=== PATIENT | male | born 1990 | race Caucasian/White ===

== ENCOUNTER 2018-12-14 11:41 | Emergency (ER) | payer SELFPAY ==
[2018-12-14 13:09] LABS: Absolute Lymphocytes (CBC) 2.2 K/uL (0.7-4.9); Absolute Monocytes 1.3 K/uL (0.1-1.3); Absolute Neutrophil 5.4 K/uL (1.8-8.0); Basophils % 0.6 % (0-1.3); Eosinophils % 1.2 % (0-4.4); Hematocrit 47.4 % (39.6-49.0); MPV 8.9 fL (7.6-11.3); RBC Red Blood Cell Count 4.91 M/uL (4.33-5.43)
[2018-12-14 13:12] LABS: BUN Blood Urea Nitrogen 11 mg/dL (7-18); Bicarbonate 28 mmol/L (21-32); Glucose Level 109 mg/dL (74-106); Potassium 3.8 mmol/L (3.5-5.1); Sodium Level 139 mmol/L (136-145)
--- NOTE | 2018-12-14 13:33 | RAD REPORT ---
EXAM DESCRIPTION: RAD - Foot Right 3 View - 12/14/2018 1:22 pm CLINICAL HISTORY: Right foot pain FINDINGS: No fracture or dislocation is seen No bony destructive lesions seen
--- NOTE | 2018-12-14 14:15 | EDPHYS ---
Physician Documentation [facility] Name: Royer Hinojosa Age: 28 yrs Sex: Male : 1990 Arrival Date: 12/14/2018 Time: 11:44 Bed 20 Private MD: None, None ED Physician Isac Carmona HPI: 12/14 12:59 This 28 yrs old Male presents to ER via Ambulatory with complaints of Right pm1 Foot Pain, Foot Infection. 12:59 The patient presents with pain. The complaints affect the sole of right foot. Context: pm1 The problem was sustained at an unknown site, resulted from an unknown cause, the patient can fully bear weight, the patient is able to ambulate. 12:59 Onset: The symptoms/episode began/occurred 3 day(s) ago. Modifying factors: The pm1 symptoms are alleviated by nothing. the symptoms are aggravated by weight bearing. Associated signs and symptoms: Pertinent negatives calf tenderness, fever, numbness, tingling, vomiting. Treatment prior to arrival includes: over the counter medications, topical antifungal. Severity of symptoms: in the emergency department the symptoms are actually worse. The patient has not experienced similar symptoms in the past. The patient has not recently seen a physician. Historical: - Allergies: 11:59 No Known Allergies; iw - Home Meds: 11:59 None [Active]; iw - PMHx: 11:59 None; iw - PSHx: 11:59 None; iw - Immunization history:: Last tetanus immunization: unknown. - Social history:: Smoking status: Patient uses tobacco products, smokes one pack cigarettes per day. - Ebola Screening: : Patient negative for fever greater than or equal to 101.5 degrees Fahrenheit, and additional compatible Ebola Virus Disease symptoms Patient denies exposure to infectious person Patient denies travel to an Ebola-affected area in the 21 days before illness onset No symptoms or risks identified at this time. ROS: 12:59 Constitutional: Negative for fever, chills, and weight loss, Eyes: Negative for injury, pm1 pain, redness, and discharge, ENT: Negative for injury, pain, and discharge, Neck: Negative for injury, pain, and swelling, Cardiovascular: Negative for chest pain, palpitations, and edema, Respiratory: Negative for shortness of breath, cough, wheezing, and pleuritic chest pain, Abdomen/GI: Negative for abdominal pain, nausea, vomiting, diarrhea, and constipation, Back: Negative for injury and pain, : Negative for injury, bleeding, discharge, and swelling, MS/Extremity: Negative for injury and deformity. 12:59 Neuro: Negative for headache, weakness, numbness, tingling, and seizure. 12:59 Skin: Positive for abscess, of the right foot. Exam: 12:59 Constitutional: This is a well developed, well nourished patient who is awake, alert, pm1 and in no acute distress. Head/Face: Normocephalic, atraumatic. Neck: Trachea midline, no thyromegaly or masses palpated, and no cervical lymphadenopathy. Supple, full range of motion without nuchal rigidity, or vertebral point tenderness. No Meningismus. Chest/axilla: Normal chest wall appearance and motion. Nontender with no deformity. No lesions are appreciated. Cardiovascular: Regular rate and rhythm with a normal S1 and S2. No gallops, murmurs, or rubs. Normal PMI, no JVD. No pulse deficits. Respiratory: Lungs have equal breath sounds bilaterally, clear to auscultation and percussion. No rales, rhonchi or wheezes noted. No increased work of breathing, no retractions or nasal flaring. Abdomen/GI: Soft, non-tender, with normal bowel sounds. No distension or tympany. No guarding or rebound. No evidence of tenderness throughout. Back: No spinal tenderness. No costovertebral tenderness. Full range of motion. 12:59 MS/ Extremity: Pulses equal, no cyanosis. Neurovascular intact. Full, normal range of motion. 12:59 Skin: Appearance: normal except for affected area, abscess, that is small, of the arch of right foot, with drainage, that is serosanguinous, with surrounding cellulitis, that is very mild, induration, is not appreciated. 12:59 Neuro: Orientation: is normal, Motor: is normal, Sensation: is normal, no obvious gross deficits. Vital Signs: 11:58 BP 141 / 92; Pulse 106; Resp 16; Temp 98.8; Pulse Ox 98% on R/A; Weight 70.31 kg; iw Height 6 ft. 0 in. (182.88 cm); Pain 10/10; 13:11 BP 126 / 89; Pulse 104; Resp 16 S; Pulse Ox 99% on R/A; ca1 13:54 BP 129 / 87; Pulse 80; Resp 16; Temp 98.6(TE); Pulse Ox 99% on R/A; mh5 14:50 BP 123 / 84; Pulse 75; Resp 16 S; Temp 98.4(O); Pulse Ox 100% on R/A; ca1 11:58 Body Mass Index 21.02 (70.31 kg, 182.88 cm) iw MDM: 12:35 Patient medically screened. pm1 14:12 Data reviewed: vital signs. Data interpreted: Pulse oximetry: on room air is 99 %. pm1 Interpretation: normal. Refusal of service: The patient/guardian displays adequate decision making capability and despite a detailed discussion of alternatives, benefits, risks, and consequences refuses: patient does not want me to perform incision and drainage of abscess to bottom of right foot. It is already draining and wound culture has been obtained. Patient would like to trial at home with antibiotics. Educated patient on return precautions. 14:12 Counseling: I had a detailed discussion with the patient and/or guardian regarding: the pm1 historical points, exam findings, and any diagnostic results supporting the discharge/admit diagnosis, lab results, radiology results, the need for outpatient follow up, a office lead, to return to the emergency department if symptoms worsen or persist or if there are any questions or concerns that arise at home. 12/14 12:39 Order name: CBC with Diff; Complete Time: 13:24 pm1 12/14 12:39 Order name: BMP; Complete Time: 13:19 pm1 12/14 12:39 Order name: Foot Right 3 View XRAY; Complete Time: 13:34 pm1 12/14 12:47 Order name: Wound Culture ca1 12/14 12:39 Order name: IV Saline Lock; Complete Time: 12:46 pm1 12/14 14:16 Order name: Wound dressing; Complete Time: 15:08 pm1 Administered Medications: 14:21 Drug: Bactrim (160 mg-800 mg (DS) 1 tablet Route: PO; ca1 15:07 Follow up: Response: No adverse reaction ca1 14:22 Drug: Peabody 5 mg-325 mg 1 tabs Route: PO; ca1 15:06 Follow up: Response: No adverse reaction; Pain is decreased ca1 14:25 Drug: Clindamycin 600 mg Route: IVPB; Infused Over: 30 mins; Site: right antecubital; ca1 15:07 Follow up: Response: No adverse reaction; IV Status: Completed infusion ca1 Disposition: 15:23 Co-signature as Attending Physician, Isac Carmona MD. Disposition: 12/14/18 14:14 Discharged to Home. Impression: Cutaneous abscess of right foot. - Condition is Stable. - Discharge Instructions: Skin Abscess. - Prescriptions for Clindamycin HCl 300 mg Oral Capsule - take 1 capsule by ORAL route every 6 hours for 10 days; 40 capsule. Bactrim DS 800- 160 mg Oral Tablet - take 1 tablet by ORAL route every 12 hours for 10 days; 20 tablet. Tylenol- Codeine #3 300-30 mg Oral Tablet - take 2 tablets by ORAL route every 6 hours As needed; 20 tablet. - Medication Reconciliation Form, Thank You Letter, Antibiotic Education, Prescription Opioid Use form. - Follow up: Emergency Department; When: As needed; Reason: Worsening of condition. Follow up: Private Physician; When: 2 - 3 days; Reason: Recheck today's complaints, Continuance of care, Re-evaluation by your physician. - Problem is new. - Symptoms have improved. Signatures: Dispatcher [employer] Cherelle Gaspar RN RN Tre Michele, [employer] pm1 Isac Carmona MD MD Brit Chavez RN RN ca1 Corrections: (The following items were deleted from the chart) 15:19 14:14 12/14/2018 14:14 Discharged to Home. Impression: Cutaneous abscess of right foot. ca1 Condition is Stable. Forms are Medication Reconciliation Form, Thank You Letter, Antibiotic Education, Prescription Opioid Use. Follow up: Emergency Department; When: As needed; Reason: Worsening of condition. Follow up: Private Physician; When: 2 - 3 days; Reason: Recheck today's complaints, Continuance of care, Re-evaluation by your physician. Problem is new. Symptoms have improved. pm1
--- NOTE | 2018-12-14 14:15 | ER ---
Nurse's Notes [facility] Name: Royer Hinojosa Age: 28 yrs Sex: Male : 1990 Arrival Date: 12/14/2018 Time: 11:44 Bed 20 Private MD: None, None Diagnosis: Cutaneous abscess of right foot Presentation: 12/14 11:56 Presenting complaint: Patient states: had a small spot on bottom of right iw foot, now the spot has grown larger and has redness and swelling surrounding the area. Transition of care: patient was not received from another setting of care. Onset of symptoms was December 11, 2018. Risk Assessment: Do you want to hurt yourself or someone else? Patient reports no desire to harm self or others. Initial Sepsis Screen: Does the patient meet any 2 criteria? HR > 90 bpm. Does the patient have a suspected source of infection? No. Patient's initial sepsis screen is negative. Care prior to arrival: None. 11:56 Method Of Arrival: Ambulatory 11:56 Acuity: FRANK 3 iw Historical: - Allergies: 11:59 No Known Allergies; iw - Home Meds: 11:59 None [Active]; iw - PMHx: 11:59 None; iw - PSHx: 11:59 None; iw - Immunization history:: Last tetanus immunization: unknown. - Social history:: Smoking status: Patient uses tobacco products, smokes one pack cigarettes per day. - Ebola Screening: : Patient negative for fever greater than or equal to 101.5 degrees Fahrenheit, and additional compatible Ebola Virus Disease symptoms Patient denies exposure to infectious person Patient denies travel to an Ebola-affected area in the 21 days before illness onset No symptoms or risks identified at this time. Screenin:08 Abuse screen: Denies threats or abuse. Denies injuries from another. Nutritional ca1 screening: No deficits noted. Tuberculosis screening: No symptoms or risk factors identified. Fall Risk None identified. Assessment: 12:08 General: Appears in no apparent distress. comfortable, Behavior is calm, cooperative, ca1 appropriate for age. Pain: Complains of pain in right foot Pain currently is 7 out of 10 on a pain scale. Pain began 2-3 days ago. Neuro: Level of Consciousness is awake, alert, obeys commands, Oriented to person, place, time, situation. Derm: Skin is healthy with good turgor, Skin is pink, warm \T\ dry. Abscess located on arch of right foot is dime sized, has purulent drainage, has no drainage, is red, is raised. Musculoskeletal: Circulation, motion, and sensation intact. Capillary refill < 3 seconds, Range of motion: intact in all extremities. 13:11 Reassessment: Patient appears in no apparent distress at this time. Patient and/or ca1 family updated on plan of care and expected duration. Pain level reassessed. Patient is alert, oriented x 3, equal unlabored respirations, skin warm/dry/pink. 13:54 Reassessment: Patient appears in no apparent distress at this time. Patient is alert, ca1 oriented x 3, equal unlabored respirations, skin warm/dry/pink. 14:50 Reassessment: Patient appears in no apparent distress at this time. Patient is alert, ca1 oriented x 3, equal unlabored respirations, skin warm/dry/pink. Vital Signs: 11:58 BP 141 / 92; Pulse 106; Resp 16; Temp 98.8; Pulse Ox 98% on R/A; Weight 70.31 kg; iw Height 6 ft. 0 in. (182.88 cm); Pain 10/10; 13:11 BP 126 / 89; Pulse 104; Resp 16 S; Pulse Ox 99% on R/A; ca1 13:54 BP 129 / 87; Pulse 80; Resp 16; Temp 98.6(TE); Pulse Ox 99% on R/A; mh5 14:50 BP 123 / 84; Pulse 75; Resp 16 S; Temp 98.4(O); Pulse Ox 100% on R/A; ca1 11:58 Body Mass Index 21.02 (70.31 kg, 182.88 cm) iw ED Course: 11:44 Patient arrived in ED. ag5 11:45 None, None is Private Physician. ag5 11:58 Triage completed. iw 11:58 Arm band placed on. iw 12:04 Brit Chavez, RN is Primary Nurse. ca1 12:08 Patient has correct armband on for positive identification. Bed in low position. Call ca1 light in reach. Side rails up X 1. Pulse ox on. NIBP on. Warm blanket given. 12:09 Tre Michele NP is PHCP. pm1 12:09 Isac Carmona MD is Attending Physician. pm1 12:47 Inserted saline lock: 20 gauge in right antecubital area, using aseptic technique. ca1 Blood collected. 13:22 Foot Right 3 View XRAY In Process Unspecified. EDMS 15:07 No provider procedures requiring assistance completed. IV discontinued, intact, ca1 bleeding controlled, No redness/swelling at site. Pressure dressing applied. Wound care: to abscess located on left foot and arch of right foot was cleaned with Hibiclens, irrigated with dressed with Neosporin, 4X4s, Kerlix, Patient tolerated well. Administered Medications: 14:21 Drug: Bactrim (160 mg-800 mg (DS) 1 tablet Route: PO; ca1 15:07 Follow up: Response: No adverse reaction ca1 14:22 Drug: Lena 5 mg-325 mg 1 tabs Route: PO; ca1 15:06 Follow up: Response: No adverse reaction; Pain is decreased ca1 14:25 Drug: Clindamycin 600 mg Route: IVPB; Infused Over: 30 mins; Site: right antecubital; ca1 15:07 Follow up: Response: No adverse reaction; IV Status: Completed infusion ca1 Outcome: 14:14 Discharge ordered by . pm1 15:18 Discharged to home ambulatory, with significant other. ca1 15:18 Condition: stable 15:18 Discharge instructions given to patient, Instructed on discharge instructions, follow up and referral plans. medication usage, wound care, Demonstrated understanding of instructions, follow-up care, medications, wound care, Prescriptions given X 3. 15:19 Patient left the ED. ca1 Signatures: Dispatcher [employer] EDMS Cherelle Hernandez RN RN iw Marinas, Patrick, NP BRE[employer]FFER pm1 Miracle Rivera 5 Brit Chavez RN RN ca1 Yamilex Le 5
[2018-12-14] MEDS ORDERED: HYDROCODONE/APAP 5/325 MG TAB ONE (14:41)
[2018-12-14] MEDS ORDERED: SMZ./TMP. 800/160 MG TABLET ONE (14:41)
[2018-12-14] MEDS ORDERED: CLINDAMYCIN 600MG/D5W 600 MG/50 ML BAG IV ONE (14:41)
== END 2018-12-14 15:19 | disposition home or self-care (01) ==
LOC: ER 11:41
DX: L02.611 Cutaneous abscess of right foot (principal); F17.210 Nicotine dependence, cigarettes, uncomplicated
CPT/HCPCS: 36415; 80048; 85025; 87070; 87205; 96365; 99284